=== PATIENT | female | born 1965 | race Caucasian/White ===

== ENCOUNTER 2017-12-29 17:41 | Emergency (ER) | payer OTHER ==
[2017-12-29 17:48] VITALS: BP 137/76; PULSE 91; RESP 16; TEMP 98.3
[2017-12-29] MEDS ORDERED: IBUPROFEN 600 MG STARTER PACK 4 TAB BTL PO STA (18:10)
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
== END 2017-12-29 19:49 | disposition home or self-care (01) ==
LOC: EC 17:41
DX: S93.401A Sprain of unspecified ligament of right ankle, initial encounter (principal); S93.601A Unspecified sprain of right foot, initial encounter; E11.9 Type 2 diabetes mellitus without complications; E78.5 Hyperlipidemia, unspecified; I10 Essential (primary) hypertension; Z79.82 Long term (current) use of aspirin; Z79.84 Long term (current) use of oral hypoglycemic drugs; Z79.899 Other long term (current) drug therapy; V47.6XXA Car passenger injured in collision with fixed or stationary object in traffic accident, initial encounter; Y92.410 Unspecified street and highway as the place of occurrence of the external cause
CPT/HCPCS: 99284

== ENCOUNTER 2022-01-12 10:14 | Emergency (ER) | payer BC ==
[2022-01-12 10:19] VITALS: RESP 18; TEMP 97.9
[2022-01-12] MEDS ORDERED: ASPIRIN 81 MG PO STA (10:35)
[2022-01-12 10:58] LABS: Basophils # (A) 0.1 k/uL (0-0.2); Basophils % (A) 2 %; Eosinophils # (A) 0.3 k/uL (0-0.7); Eosinophils % (A) 4 %; HCT 45.4 % (34.0-46.0); HGB 15.2 gm/dL (11.4-16.0); Lymphocytes # (A) 2.4 k/uL (1.0-4.8); Lymphocytes % (A) 36 %; MCH 32.3 pg (25.0-35.0); MCHC 33.5 g/dL (31.0-37.0); MCV 96.4 fL (80.0-100.0); Mean Platelet Volume 7.4; Monocytes # (A) 0.5 k/uL (0-1.0); Monocytes % (A) 7 %; Neutrophils # (A) 3.2 k/uL (1.3-7.7); Neutrophils % (A) 49 %; Platelet Count 529 k/uL (150-450); RBC 4.71 m/uL (3.80-5.40); RDW 13.8 % (11.5-15.5); WBC 6.6 k/uL (3.8-10.6)
[2022-01-12 11:11] LABS: INR 0.9 (<1.2); Partial Thromboplastin Time 22.5 sec (22.0-30.0); Prothrombin Time 9.8 sec (9.0-12.0)
[2022-01-12 11:17] LABS: ALT 22 U/L (4-34); African American GFR (CKD) >90 (>60 ml/min/1.73 sqM); Albumin 4.2 g/dL (3.5-5.0); Anion Gap 8 mmol/L; Blood Urea Nitrogen 19 mg/dL (7-17); Calcium 9.5 mg/dL (8.4-10.2); Carbon Dioxide 24 mmol/L (22-30); Chloride 107 mmol/L (98-107); Glucose 176 mg/dL (74-99); Non-African American GFR(CKD) 88 (>60 ml/min/1.73 sqM); Sodium 139 mmol/L (137-145); Total Bilirubin 0.6 mg/dL (0.2-1.3); Total Protein 7.3 g/dL (6.3-8.2)
--- NOTE | 2022-01-12 11:31 | ED ---
General Adult HPI - General Chief complaint: Chest Pain Stated complaint: chest & arm pain Time Seen by Provider: 01/12/22 10:22 Source: patient, RN notes reviewed, old records reviewed Mode of arrival: ambulatory Limitations: no limitations - History of Present Illness Initial comments: Patient's age 56-year-old female with past medical history remarkable for diabetes, hypertension who presents emergency Department complaining of intermittent chest pain over the last week. Last period yesterday. Described as a substernal pressure sensation. Currently not experiencing any symptoms. Denies any shortness of breath. Denies abdominal pain, nausea, vomiting. Denies any other acute complaints at this time. States that 10 days ago approximately, she also experienced left arm shooting pain from her shoulder down to her fingertips. States the pain was so severe she cannot move it. Results unsound. Unknown if this is related to her current symptoms. No further symptoms since that time. Presents for further evaluation at this time. - Related Data Home Medications Medication Instructions Recorded Confirmed Atorvastatin [Lipitor] 10 mg PO DAILY 12/29/17 01/12/22 lisinopriL [Zestril] 5 mg PO DAILY 12/29/17 01/12/22 Empagliflozin [Jardiance] 25 mg PO DAILY 01/12/22 01/12/22 Insulin Glargine [Lantus Vial] 5 unit SQ QAM 01/12/22 01/12/22 Insulin Glargine [Lantus Vial] 15 unit SQ HS 01/12/22 01/12/22 Metformin Er 750mg 750 mg PO W/SUPPER 01/12/22 01/12/22 Allergies Allergy/AdvReac Type Severity Reaction Status Date / Time No Known Allergies Allergy Verified 01/12/22 11:47 Review of Systems ROS Statement: Those systems with pertinent positive or pertinent negative responses have been documented in the HPI. Review of Systems: CONST: Denies fever EYES: Denies blurry vision ENT: Denies nasal congestion C/V: Denies Chest pain RESP: Denies shortness of breath GI: Denies abdominal pain : Denies dysuria SKIN: Denies rash. MSK: Denies joint pain. NEURO: Denies headache ROS Other: All systems not noted in ROS Statement are negative. Past Medical History Past Medical History: Diabetes Mellitus, Hyperlipidemia, Hypertension History of Any Multi-Drug Resistant Organisms: None Reported Past Surgical History: Section, Hysterectomy, Orthopedic Surgery, Tonsillectomy Additional Past Surgical History / Comment(s): Spleen removal Past Psychological History: No Psychological Hx Reported Smoking Status: Never smoker Past Alcohol Use History: Occasional Past Drug Use History: None Reported General Exam - General Exam Comments Initial Comments: General: Appears in no acute distress. HEAD: Normal with no signs of head trauma. EYES: PERRLA, EOMI, conjunctiva normal, no discharge. ENT: Hearing grossly intact, normal oropharynx. RESPIRATORY: Clear breath sounds bilaterally. No wheezes, rales, or rhonchi. C/V: Regular rate and rhythm. S1 and S2 auscultated, no edema, peripheral pulses 2+ and intact throughout ABD: Abd is soft, nontender, nondistended EXT: Normal range of motion, no obvious deformity SKIN: No rashes or lesions observed on exposed skin. NEURO: Alert and oriented x 4. Cranial nerves II-XII intact. No focal sensory or strength deficits. NIH of 0. GCS of 15. Able to ambulate without difficulty. 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 I cannot link the left shoulder pain to the chest pain, his fever occurred at the same time, and she currently has no symptoms. We will obtain screening labs and she was in agreement this plan. We'll be empirically given an aspirin as well. EKG shows no signs of acute ischemia.Prior to labs, patient was found to be slightly hypoxic on room air down to 90%. This resolved on 2 L nasal cannula. Throughout her stay her pulse ox fluctuated and seemed to go down when she was resting, and when we wake her up, she improves. Pulse ox 1 alert and moving is anywhere from 94-90%. When she is at rest, the lowest it dropped was 89% which is not persistent. Laboratory studies were unremarkable except for slightly karuna vated d-dimer 0.66. Troponin is undetectable. BNP is within normal limits. Covid is negative. Chest x-ray showed no acute cardiopulmonary process. Shoulder x-ray showed arthritic changes but no acute process. On reevaluation, patient was resting comfortable in room air. I discussed with her the results her labs and recommended a CT to rule out the possibly of PE due to the elevated d-dimer. She was in agreement this plan. CT PE showed no acute process. No pulmonary Embolism. On reevaluation, patient remains in no acute distress. Asymptomatic. Vital signs within normal limits. Saturating well on room air. I discussed her workup. I believe she should follow up with cardiology outpatient, but she would like to go home. I believe this is reasonable. This possible her temporary decreases in pulse ox readings could be secondary to possible obstructive sleep apnea as they seem to occur when she is resting. She was in agreement this plan. We'll follow up with her PCP. I instructed the patient to follow up with their PCP in the next 1-3 days. I explained that the patient should return to the emergency department if they experience any worsening symptoms. Strict return precautions were discussed with the patient. The patient expressed understanding of these instructions. I answered all questions that the patient had. The patient was discharged home in good condition with their prescriptions and follow up information. - Lab Data Result diagrams: 01/12/22 10:48 01/12/22 10:48 Lab Results 01/12/22 01/12/22 01/12/22 Range/Units 10:48 10:48 10:48 WBC 6.6 (3.8-10.6) k/uL RBC 4.71 (3.80-5.40) m/uL Hgb 15.2 (11.4-16.0) gm/dL Hct 45.4 (34.0-46.0) % MCV 96.4 (80.0-100.0) fL MCH 32.3 (25.0-35.0) pg MCHC 33.5 (31.0-37.0) g/dL RDW 13.8 (11.5-15.5) % Plt Count 529 H (150-450) k/uL MPV 7.4 Neutrophils % 49 % Lymphocytes % 36 % Monocytes % 7 % Eosinophils % 4 % Basophils % 2 % Neutrophils # 3.2 (1.3-7.7) k/uL Lymphocytes # 2.4 (1.0-4.8) k/uL Monocytes # 0.5 (0-1.0) k/uL Eosinophils # 0.3 (0-0.7) k/uL Basophils # 0.1 (0-0.2) k/uL PT 9.8 (9.0-12.0) sec INR 0.9 (<1.2) APTT 22.5 (22.0-30.0) sec D-Dimer (<0.60) mg/L FEU Sodium 139 (137-145) mmol/L Potassium 4.3 (3.5-5.1) mmol/L Chloride 107 (98-107) mmol/L Carbon Dioxide 24 (22-30) mmol/L Anion Gap 8 mmol/L BUN 19 H (7-17) mg/dL Creatinine 0.76 (0.52-1.04) mg/dL Est GFR (CKD-EPI)AfAm >90 (>60 ml/min/1.73 sqM) Est GFR (CKD-EPI)NonAf 88 (>60 ml/min/1.73 sqM) Glucose 176 H (74-99) mg/dL Calcium 9.5 (8.4-10.2) mg/dL Magnesium 1.8 (1.6-2.3) mg/dL Total Bilirubin 0.6 (0.2-1.3) mg/dL AST 26 (14-36) U/L ALT 22 (4-34) U/L Alkaline Phosphatase 78 (38-126) U/L Troponin I (0.000-0.034) ng/mL NT-Pro-B Natriuret Pep pg/mL Total Protein 7.3 (6.3-8.2) g/dL Albumin 4.2 (3.5-5.0) g/dL Coronavirus (PCR) (Not Detectd) 01/12/22 01/12/22 01/12/22 Range/Units 10:48 10:48 10:48 WBC (3.8-10.6) k/uL RBC (3.80-5.40) m/uL Hgb (11.4-16.0) gm/dL Hct (34.0-46.0) % MCV (80.0-100.0) fL MCH (25.0-35.0) pg MCHC (31.0-37.0) g/dL RDW (11.5-15.5) % Plt Count (150-450) k/uL MPV Neutrophils % % Lymphocytes % % Monocytes % % Eosinophils % % Basophils % % Neutrophils # (1.3-7.7) k/uL Lymphocytes # (1.0-4.8) k/uL Monocytes # (0-1.0) k/uL Eosinophils # (0-0.7) k/uL Basophils # (0-0.2) k/uL PT (9.0-12.0) sec INR (<1.2) APTT (22.0-30.0) sec D-Dimer 0.66 H (<0.60) mg/L FEU Sodium (137-145) mmol/L Potassium (3.5-5.1) mmol/L Chloride (98-107) mmol/L Carbon Dioxide (22-30) mmol/L Anion Gap mmol/L BUN (7-17) mg/dL Creatinine (0.52-1.04) mg/dL Est GFR (CKD-EPI)AfAm (>60 ml/min/1.73 sqM) Est GFR (CKD-EPI)NonAf (>60 ml/min/1.73 sqM) Glucose (74-99) mg/dL Calcium (8.4-10.2) mg/dL Magnesium (1.6-2.3) mg/dL Total Bilirubin (0.2-1.3) mg/dL AST (14-36) U/L ALT (4-34) U/L Alkaline Phosphatase (38-126) U/L Troponin I <0.012 (0.000-0.034) ng/mL NT-Pro-B Natriuret Pep 26 pg/mL Total Protein (6.3-8.2) g/dL Albumin (3.5-5.0) g/dL Coronavirus (PCR) (Not Detectd) 01/12/22 Range/Units 12:03 WBC (3.8-10.6) k/uL RBC (3.80-5.40) m/uL Hgb (11.4-16.0) gm/dL Hct (34.0-46.0) % MCV (80.0-100.0) fL MCH (25.0-35.0) pg MCHC (31.0-37.0) g/dL RDW (11.5-15.5) % Plt Count (150-450) k/uL MPV Neutrophils % % Lymphocytes % % Monocytes % % Eosinophils % % Basophils % % Neutrophils # (1.3-7.7) k/uL Lymphocytes # (1.0-4.8) k/uL Monocytes # (0-1.0) k/uL Eosinophils # (0-0.7) k/uL Basophils # (0-0.2) k/uL PT (9.0-12.0) sec INR (<1.2) APTT (22.0-30.0) sec D-Dimer (<0.60) mg/L FEU Sodium (137-145) mmol/L Potassium (3.5-5.1) mmol/L Chloride (98-107) mmol/L Carbon Dioxide (22-30) mmol/L Anion Gap mmol/L BUN (7-17) mg/dL Creatinine (0.52-1.04) mg/dL Est GFR (CKD-EPI)AfAm (>60 ml/min/1.73 sqM) Est GFR (CKD-EPI)NonAf (>60 ml/min/1.73 sqM) Glucose (74-99) mg/dL Calcium (8.4-10.2) mg/dL Magnesium (1.6-2.3) mg/dL Total Bilirubin (0.2-1.3) mg/dL AST (14-36) U/L ALT (4-34) U/L Alkaline Phosphatase (38-126) U/L Troponin I (0.000-0.034) ng/mL NT-Pro-B Natriuret Pep pg/mL Total Protein (6.3-8.2) g/dL Albumin (3.5-5.0) g/dL Coronavirus (PCR) Not Detected (Not Detectd) - EKG Data -: EKG Interpreted by Me EKG Comments: 12-lead Electrocardiogram Interpretation Note EKG was reviewed and interpreted by myself. 12-lead ECG performed at 10:30 is interpreted by me as revealing normal sinus rhythm at a rate of 84 beats per minute. Clear is normal. SC interval is 167 ms, QRS duration is 102 ms, QTc is 414 ms.. There were no ST or T wave abnormalities to suggest myocardial ischemia or injury. R wave progression across the precordium was satisfactory. By my interpretation this EKG is non-diagnostic for acute ischemia. Disposition Clinical Impression: Atypical chest pain Disposition: HOME SELF-CARE Condition: Good Instructions (If sedation given, give patient instructions): Chest Pain (ED) Is patient prescribed a controlled substance at d/c from ED?: No Referrals: Elisa Luong MD [Primary Care Provider] - 1-2 days Time of Disposition: 14:00
[2022-01-12 11:32] LABS: AST 26 U/L (14-36); Alkaline Phosphatase 78 U/L (38-126); Magnesium 1.8 mg/dL (1.6-2.3); Potassium 4.3 mmol/L (3.5-5.1)
--- NOTE | 2022-01-12 11:48 | XR ---
EXAMINATION TYPE: XR chest 2V DATE OF EXAM: 01/12/2022 11:37 AM COMPARISON: None TECHNIQUE: XR chest 2V Frontal and lateral views of the chest. CLINICAL INDICATION:Female, 56 years old with history of Chest Pain; FINDINGS: Lungs/Pleura: There is no evidence of pleural effusion, focal consolidation, or pneumothorax. Pulmonary vascularity: Unremarkable. Heart/mediastinum: Cardiomediastinal silhouette is unremarkable. Musculoskeletal: Multiple level degenerative disc disease changes seen throughout the spine. No acute osseous abnormality. Other findings: Surgical clips in the left upper quadrant. IMPRESSION: No acute cardiopulmonary disease/process.
--- NOTE | 2022-01-12 11:52 | XR ---
EXAMINATION TYPE: XR shoulder limited LT DATE OF EXAM: 01/12/2022 11:39 AM INDICATION: Patient age:Female; 56 years old; Reason for study: pain, resolved; COMPARISON: Left shoulder radiograph 01/11/2014. TECHNIQUE: The left shoulder was examined in internal and external rotation. FINDINGS: No evidence of acute osseous pathology, joint dislocation, or soft tissue swelling. Mild degenerative changes of the left shoulder and AC joint with osteophyte formation. The remaining portions of the v isualized chest are unremarkable. IMPRESSION: No acute osseous pathology. Mild degenerative changes of the left shoulder and AC joint.
--- NOTE | 2022-01-12 13:58 | CT ---
EXAMINATION TYPE: CT chest angio for PE DATE OF EXAM: 01/12/2022 COMPARISON: None HISTORY: SOB and Chest pain for [address] DLP: 322.1 mGycm Automated exposure control for dose reduction was used. CONTRAST: CT Chest for pulmonary embolism performed with without and with IV Contrast, patient injected with 10 0 ml mL of Isovue 370. Technique: Multiple axial images are obtained to the thorax uneventful menstruation nonionic IV contr ast. 3-D postprocessing was performed. FINDINGS: LUNGS: The lungs are grossly clear, there is no concerning parenchymal mass or nodule identified. T here is no pleural effusion or pneumothorax seen. The tracheobronchial tree is patent. MEDIASTINUM: There is satisfactory enhancement of the pulmonary artery and its branches, there is no CT evidence for pulmonary embolism. There are no greater than 1 cm hilar or mediastinal lymph nodes. No pericardial effusion is seen. OTHER: Postsurgical changes involving the left lung base pleura/left upper quadrant abdomen. Multipl e tiny gallstones. IMPRESSION: 1. No evidence of pulmonary embolism. 2. No acute cardiopulmonary disease. 3. Cholelithiasis
[2022-01-12 14:11] VITALS: BP 117/76; PULSE 77
== END 2022-01-12 14:12 | disposition home or self-care (01) ==
LOC: EC 10:14
DX: R07.89 Other chest pain (principal); E11.9 Type 2 diabetes mellitus without complications; I10 Essential (primary) hypertension; E78.5 Hyperlipidemia, unspecified; Z79.899 Other long term (current) drug therapy; Z20.822 Contact with and (suspected) exposure to COVID-19; Z79.84 Long term (current) use of oral hypoglycemic drugs; Z79.4 Long term (current) use of insulin
CPT/HCPCS: 36415; 93005; 85379; 83880; 80053; 83735; 84484; 85025; 85610; 85730; 87635; 73020; 71046; 71275; 99285; Q9967